=== PATIENT | male | born 1970 | race Caucasian/White ===

== ENCOUNTER 2020-09-01 22:17 | Outpatient (REF) | payer BC, SELFPAY ==
[2020-09-06 10:43] LABS: Patient Race White; SARS-CoV-2 RNA Undetected (Undetected)
== END 2020-09-01 22:37 ==
LOC: NCHCN 22:17
PROVIDERS: PCP Nurse Practitioner Family; Visit Provider Nurse Practitioner Family
DX: R09.81 Nasal congestion (principal); Z20.828 Contact with and (suspected) exposure to other viral communicable diseases
CPT/HCPCS: U0003